=== PATIENT | female | born 1970 | race African-American/Black ===

== ENCOUNTER 2022-06-26 03:46 | Emergency (ER) | payer SELFPAY ==
[~2022-06-26] VITALS: Ht 157.5 cm; Wt 78.0 kg
[2022-06-26 04:02] VITALS: BP 173/86
[2022-06-26] MEDS ORDERED: IBUPROFEN 600MG TABLET PO STA (06:22)
[2022-06-26 07:29] LABS: CLARITY URINE HAZY (CLEAR); COLOR URINE YELLOW (YELLOW)
[2022-06-26 07:30] LABS: KETONES URINE NEGATIVE (NEGATIVE); LEUKOCYTE ESTERASE URINE NEGATIVE (NEGATIVE); NITRITE URINE POSITIVE (NEGATIVE); OCCULT BLOOD URINE 2+ (NEGATIVE); PROTEIN URINE TRACE (NEGATIVE); UROBILINOGEN URINE 0.2 E.U./dL (0.2-1.0)
[2022-06-26] MEDS ORDERED: LEVO750T68 MT (08:25)
[2022-06-26] MEDS ORDERED: IBUP-2029 MT (08:25)
== END 2022-06-26 08:42 | disposition home or self-care (01) ==
LOC: ER 03:46
DX: N12 Tubulo-interstitial nephritis, not specified as acute or chronic (principal); N30.90 Cystitis, unspecified without hematuria; Z98.890 Other specified postprocedural states; Z88.0 Allergy status to penicillin
CPT/HCPCS: 81003; 81025; 99283